=== PATIENT | female | born 1990 | race Caucasian/White ===

== ENCOUNTER → 2024-02-21 07:10 | Outpatient (REF) | payer OTHER, SELFPAY | LOC: HWRAD 07:10 | PROVIDERS: ATTENDING PHYSICIAN Internal Medicine; FAMILY PHYSICIAN Student in an Organized Health Care Education/Training Program | DX: Q61.2 Polycystic kidney, adult type (principal) | CPT/HCPCS: 76700 ==

== ENCOUNTER 2024-12-04 15:35 | Emergency (ER) | payer OTHER, SELFPAY ==
[2024-12-04 15:49] VITALS: BP 147/107
--- NOTE | 2024-12-04 15:50 | ED.GENMED ---
ED Provider Triage
<See Lezama PA-C - Last Filed: 12/04/24 15:51>
-
Patient seen by provider in Triage?: Seen in Triage
34-year-old female presents with bilateral upper and lower extremity swelling with back discomfort. She states this started after strenuous exercise. She has polycystic kidney disease. She noted flulike symptoms 2 nights ago as well no chest pain
or shortness of breath
Vital signs are stable through triage. Will start with labs including CBC CMP CPK hCG and urinalysis. COVID and flu test ordered as well
Patient seen by healthcare provider at triage but warrants further work up.
History of Present Illness
<See Lezama PA-C - Last Filed: 12/04/24 15:51>
General
Chief Complaint: Swelling
Time Seen by Provider: 12/04/24 18:40
<Phil Díaz DO, Resident - Last Filed: 12/04/24 19:51>
General
Source: patient
History of Present Illness
History of Present Illness:
34-year-old female past medical history of polycystic kidney disease and hypothyroidism presents for bilateral foot and hand swelling of a few days in duration. Patient reports some back pain and neck pain which started after exercising. Neck pain
is reproducible with motion and palpation. Back pain is along the right side mid thoracic, not reproducible with pain or movement. Patient is also endorsing some painful gait, described as 'swelling pain' says that she has difficulty ambulating.
In the emergency department patient is able to ambulate with shoes on and off.
Past History
<See Lezama PA-C - Last Filed: 12/04/24 15:51>
Past History
ED Past Medical History: Other (polycystic kidney)
ED Past Surgical History: None
Social History
Tobacco: Smoker
Alcohol: None
Drug: None
Personal:
Living: with family
Employment: Employed
Family History
Family History: Negative Diabetes or Hypertension
Review of Systems
<Phil Díaz DO, Resident - Last Filed: 12/04/24 19:51>
Review of Systems
Constitutional: Reports no symptoms
Respiratory: Reports no symptoms
Cardiac: Reports no symptoms
ABD/GI: Reports no symptoms; Denies nausea or vomiting
: Reports flank pain and other (No urinary symptoms)
Musculoskeletal: Reports neck pain and back pain
Phy Exam
<Phil Díaz DO, Resident - Last Filed: 12/04/24 19:51>
General Physical Exam
General Presentation: well appearing and no apparent distress
General Skin: warm and dry
Cardiovascular Exam
Cardiovascular Exam: regular rate/rhythm, no edema and no murmur
Pulmonary Exam
Pulmonary Exam: lungs clear, no respiratory distress, no crackles and no wheezing
Gastrointestinal Exam
Gastrointestinal Exam: non tender, soft, non distended and other (Abdomen nontender on exam to both deep and light palpation, no rebound, no guarding.)
Musculoskeletal Exam
Musculoskeletal Exam: edema (Hands do not have any edema present. There is small amount of nonpitting edema present in bilateral lower extremities, slight sock sign. Grade would be trace or +1) and other (Patient has cervical neck pain,
reproduction with active and passive motion as well as palpation. Back pain present mid right thoracic, not reproducible with palpation or movement)
Course
<See Lezama PA-C - Last Filed: 12/04/24 15:51>
Orders/Labs/Results
Orders:
Orders
12/04/24 15:49
Test Result ONCE
12/04/24 16:00
CPK [Creatine Phosphokinase] Urgent
Complete Blood Count/With Diff Urgent
Comprehensive Metabolic Panel Urgent
HCG, Serum Qualitative Screen Urgent
NT-proBNP Urgent
12/04/24 19:29
Urinalysis Reflex To Culture Urgent
Date Specimen was Collected: 12/04/24
Time Specimen was Collected: 19:17
Abnormal Lab Results
12/04/24
16:00
RBC 3.62 L 10^6/uL
(4.20-5.40)
Hgb 11.4 L g/dL
(12.0-16.0)
Hct 33.1 L %
(37.0-47.0)
MCH 31.5 H pg
(27.0-31.0)
MPV 11.5 H fL
(7.4-10.4)
Absolute Lymphs (auto) 0.7 L 10^3/uL
(1.2-3.4)
Neutrophils % 85.5 H %
(42.2-75.2)
Lymphocytes % 10.4 L %
(20.5-51.1)
BUN 21 H mg/dl
(7-17)
Glucose 137 H mg/dl
(70-99)
Creatine Kinase 138 H U/L
(30-135)
12/04/24 16:00
12/04/24 16:00
Vital Signs
Initial and Last Documented VS:
Initial Vital Signs
Temp Pulse Resp BP Pulse Ox
36.7 C 84 16 147/107 100
12/04/24 15:49 12/04/24 15:49 12/04/24 15:49 12/04/24 15:49 12/04/24 15:49
Last Documented Vital Signs
Temp Pulse Resp BP Pulse Ox
36.7 C 78 18 135/92 98
12/04/24 15:49 12/04/24 17:42 12/04/24 17:42 12/04/24 17:42 12/04/24 17:42
<Phil Díaz DO, Resident - Last Filed: 12/04/24 19:51>
Orders/Labs/Results
Orders:
Orders
12/04/24 15:49
Test Result ONCE
12/04/24 16:00
CPK [Creatine Phosphokinase] Urgent
Complete Blood Count/With Diff Urgent
Comprehensive Metabolic Panel Urgent
HCG, Serum Qualitative Screen Urgent
NT-proBNP Urgent
12/04/24 19:29
Urinalysis Reflex To Culture Urgent
Date Specimen was Collected: 12/04/24
Time Specimen was Collected: 19:17
Abnormal Lab Results
12/04/24
16:00
RBC 3.62 L 10^6/uL
(4.20-5.40)
Hgb 11.4 L g/dL
(12.0-16.0)
Hct 33.1 L %
(37.0-47.0)
MCH 31.5 H pg
(27.0-31.0)
MPV 11.5 H fL
(7.4-10.4)
Absolute Lymphs (auto) 0.7 L 10^3/uL
(1.2-3.4)
Neutrophils % 85.5 H %
(42.2-75.2)
Lymphocytes % 10.4 L %
(20.5-51.1)
BUN 21 H mg/dl
(7-17)
Glucose 137 H mg/dl
(70-99)
Creatine Kinase 138 H U/L
(30-135)
12/04/24 16:00
12/04/24 16:00
Vital Signs
Initial and Last Documented VS:
Initial Vital Signs
Temp Pulse Resp BP Pulse Ox
36.7 C 84 16 147/107 100
12/04/24 15:49 12/04/24 15:49 12/04/24 15:49 12/04/24 15:49 12/04/24 15:49
Last Documented Vital Signs
Temp Pulse Resp BP Pulse Ox
36.7 C 78 18 135/92 98
12/04/24 15:49 12/04/24 17:42 12/04/24 17:42 12/04/24 17:42 12/04/24 17:42
<Mega Snider MD - Last Filed: 12/04/24 23:29>
Orders/Labs/Results
Orders:
Orders
12/04/24 15:49
Test Result ONCE
12/04/24 16:00
CPK [Creatine Phosphokinase] Urgent
Complete Blood Count/With Diff Urgent
Comprehensive Metabolic Panel Urgent
HCG, Serum Qualitative Screen Urgent
NT-proBNP Urgent
12/04/24 19:29
Urinalysis Reflex To Culture Urgent
Date Specimen was Collected: 12/04/24
Time Specimen was Collected: 19:17
Abnormal Lab Results
12/04/24
16:00
RBC 3.62 L 10^6/uL
(4.20-5.40)
Hgb 11.4 L g/dL
(12.0-16.0)
Hct 33.1 L %
(37.0-47.0)
MCH 31.5 H pg
(27.0-31.0)
MPV 11.5 H fL
(7.4-10.4)
Absolute Lymphs (auto) 0.7 L 10^3/uL
(1.2-3.4)
Neutrophils % 85.5 H %
(42.2-75.2)
Lymphocytes % 10.4 L %
(20.5-51.1)
BUN 21 H mg/dl
(7-17)
Glucose 137 H mg/dl
(70-99)
Creatine Kinase 138 H U/L
(30-135)
12/04/24 16:00
12/04/24 16:00
Vital Signs
Initial and Last Documented VS:
Initial Vital Signs
Temp Pulse Resp BP Pulse Ox
36.7 C 84 16 147/107 100
12/04/24 15:49 12/04/24 15:49 12/04/24 15:49 12/04/24 15:49 12/04/24 15:49
Last Documented Vital Signs
Temp Pulse Resp BP Pulse Ox
36.7 C 78 18 135/92 98
12/04/24 15:49 12/04/24 17:42 12/04/24 17:42 12/04/24 17:42 12/04/24 17:42
<Phil Díaz DO, Resident - Last Filed: 12/04/24 19:51>
MDM/Problems Addressed
Differential Diagnosis Includes:
Musculoskeletal strain, cyst rupture, idiopathic edema, nephrotic syndrome
MDM/Problems Addressed:
34 female past medical history of polycystic kidney disease and hypothyroidism presents for couple days duration of bilateral hand and foot swelling
Patient is endorsing that the foot swelling is causing her pain with gait, says it is difficult to walk without shoes
In emergency department patient has normal gait with both shoes on and off. Able to bear weight and ambulate multiple steps without assistance
Patient is also endorsing some cervical pain and back pain, cervical pain started after she was working out. It is reproducible with active motion and palpation
Back pain is midthoracic, endorsing it is at her flank. Back pain is not reproducible with motion or with palpation
Cervical pain is likely musculoskeletal in nature. Back pain could be related to polycystic kidney disease or musculoskeletal strain
Patient denies any shortness of breath, no chest pain, no abdominal pain
In emergency department patient is slightly hypertensive, all other vitals within normal limits
Laboratory demonstrates normal white blood cell count, hemoglobin 11.4, chemistry within normal limits, creatinine at baseline. Serum protein normal, serum albumin normal, beta-hCG negative.
proBNP 530, considered positive for age range 22-49, patient is not short of breath, denies orthopnea. Patient is 34, no history of heart failure. Do not believe patient is in heart failure exacerbation
On physical exam heart and lungs are clear, abdomen benign. Abdomen nontender to palpation, no rebound, no guarding. Patient resting comfortably
There is some nonpitting edema present in bilateral lower extremities, legs do feel slightly tight. Graded would be trace to +1. There is no swelling present in the bilateral upper extremities during ED visit
Will check UA, COVID and influenza swabs were ordered by triage PA
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
Urinalysis within normal limits, no infection, nitrate negative, leukocyte Estrace negative, urine albumin negative
No concern for UTI or nephrotic syndrome on UA
Unsure etiology of edema and pain with ambulation. Patient is stable for discharge. Encourage follow-up with primary care physician
<Phil Díaz DO, Resident - Last Filed: 12/04/24 19:51>
*Critical Care Note
Total Time (30-74mins, 75-104mins- exclusive of procedures): Not Applicable
ED Attending Note
<See Lezama PA-C - Last Filed: 12/04/24 15:51>
-
Portions of this chart may have been created with voice recognition software.� Occasional wrong word or��sound alike� substitutions may have occurred due to the inherent limitations of voice recognition software.
<Mega Snider MD - Last Filed: 12/04/24 23:29>
ED Attending Note
Patient seen and examined by attending physician: Yes
I performed a history and physical exam of patient and discussed management with resident, I reviewed resident's note and agree with documented findings and plan of care.: Yes
ED Attending Note:
I have seen and evaluated the patient with a [id number] encounter. I have spoken to the resident and involved in the medical history, the physical exam, medical decision making.
Evaluation and management service: agree unless noted differently below.
Results interpretation: agree unless noted differently below.
Focused HPI: 34-year-old female with a past medical history of polycystic kidney disease presents to the ER for evaluation of swelling in the ankles and hands. Patient says that she is generally active but has not been to the gym for quite some
time. A few days ago she says she went to the gym and she thinks that she 'overdid it.' She says she did strenuous cardio and weight training. She says that the next day she noticed that she was having some swelling around the ankles and in the
hands as well as some mild low back pain. Also reports some soreness in the hands and ankles. Symptoms have been persistent since then and are not improving despite the fact that she has not returned to the gym and so she came to the ER to be
assessed that she was concerned that it could be a sign of an issue with her kidneys. She denies any other complaints including chest pain, shortness of breath.
Physical exam: Awake alert no distress. Vital signs normal. She has very minor/trace nonpitting edema/swelling localized to the area around the ankles, symmetric bilaterally. No appreciable objective edema in the hands.
Medical Decision Makin-year-old female presents for evaluation of trace swelling in the ankles and hands after vigorous exercise. She was concerned that it could be a sign of a kidney issue. Labs are sent off and were unremarkable she has
notable normal creatinine. Her urinalysis is negative for blood and negative for proteinuria and she has normal albumin level in the serum. I suspect that swelling is more related to recent vigorous exercise/localized inflammatory response rather
than true edema. Nothing on exam or by history to suggest emergent pathology at this point and I think she is stable for discharge advised to elevate, ice, rest and follow-up with her PCP. She feels comfortable with this plan.
Discharge Plan
Departure
Patient Disposition: Home (Routine Discharge)
Date of Disposition: 12/04/24
Time of Disposition: 20:26
Patient with high blood pressure during this ER visit?: Yes
Discharge Problem:
Bilateral lower extremity edema
Instructions: Dependent Edema (DC), Swelling, BLOOD PRESSURE
Prescriptions:
No Action
vit [id number] [ Vitamin] 1 EACH tablet
1 mg PO DAILY
Tirosint Tab
112 mcg PO DAILY
sennosides-docusate sodium 1 TABLET tablet
1 tab PO DAILYPRN PRN (Reason: constipation) Qty: 0 0RF
ibuprofen 600 MG tablet
600 mg PO Q4HPRN PRN (Reason: moderate pain/cramps) Qty: 0 0RF
acetaminophen-codeine 1 TABLET tablet
1 tab PO Q6HPRN PRN (Reason: pain) Qty: 12 0RF
Referrals:
Cher Martin PA-C [Family Provider] - Call in 1-3 days for appt
Activity Restrictions/Additional Instructions:
Please schedule a follow-up appointment with your primary care provider, call in 1 to 3 days for an appointment
Please return to the emergency department if you develop any numbness and tingling lower extremities, they become pale, cool and painful. If you develop any severe abdominal pain, blood in the urine or with any concerns
Interventions
Interventions:
*Risk Screen - Suicide Last Done: 12/04/24 15:50
*General Assessment Last Done: 12/04/24 20:00
*Neglect/Abuse Screening Last Done: 12/04/24 15:50
ED- Fall Risk Assessment Last Done: 12/04/24 17:42
*Nursing Disposition Last Done: 12/04/24 20:28
ED- Cardiac Assessment Last Done: 12/04/24 17:42
ED- Pulmonary Assessment Last Done: 12/04/24 17:42
ED-Skin Assessment Last Done: 12/04/24 17:42
Discharge Date and Time
Discharge Date/Time: 12/04/24 21:02
Print Language: GREENLAND[place]
[2024-12-04 16:10] LABS: % Basophils 0.4 % (0-2); % Immature Granulocytes 0.4 % (0-0.5); % Lymphocytes 10.4 % (20.5-51.1); % Monocytes 3.3 % (1.7-9.3); % Neutrophils 85.5 % (42.2-75.2); Absolute Lymphocytes 0.7 10^3/uL (1.2-3.4); Absolute Monocytes 0.2 10^3/uL (0.1-0.6); Absolute Neutrophils 5.7 10^3/uL (1.4-6.5); Hematocrit 33.1 % (37.0-47.0); Hemoglobin 11.4 g/dL (12.0-16.0); Mean Corp Hgb Conc. 34.4 g/dL (33.0-37.0); Mean Corpuscular Hgb 31.5 pg (27.0-31.0); Mean Corpuscular Volume 91.4 fL (81.0-99.0); Mean Platelet Volume 11.5 fL (7.4-10.4); Nucleated Red Blood Cells % 0 %; Platelet Count 237 10^3/uL (130-400); Red Blood Cell Count 3.62 10^6/uL (4.20-5.40); Red Cell Dist. Width 11.8 % (11.5-14.5); White Blood Cell Count 6.7 10^3/uL (4.8-10.8)
[2024-12-04 16:23] LABS: HCG, Serum Qualitative Screen Negative
[2024-12-04 16:27] LABS: ALT (SGPT) 29 U/L (0-35); AST (SGOT) 32 U/L (14-36); Albumin 4.1 g/dl (3.5-5.0); Alkaline Phosphatase 38 U/L (38-126); Blood Urea Nitrogen 21 mg/dl (7-17); Calcium 9.3 mg/dl (8.4-10.2); Carbon Dioxide 22 mmol/L (22-30); Chloride 103 mmol/L (98-107); Creatine Phosphokinase 138 U/L (30-135); Glucose 137 mg/dl (70-99); Potassium 4.6 mmol/L (3.5-5.1); Sodium 136 mmol/L (135-145); Total Bilirubin 0.3 mg/dl (0.2-1.3); Total Protein 7.2 g/dl (6.3-8.2); eGFR > 60.00
[2024-12-04 17:30] LABS: NT-proBNP 530 pg/ml
[2024-12-04 17:42] VITALS: BP 135/92
[2024-12-04 19:34] LABS: Urine Albumin Negative (Neg - Trace); Urine Bilirubin Negative (Negative); Urine Character Clear (Clear); Urine Color Yellow; Urine Glucose Negative (Negative); Urine Ketone Negative (Negative); Urine Leukocyte Negative (Negative); Urine Nitrite Negative (Negative); Urine Occult Blood Negative (Negative); Urine Urobilinogen Negative (Neg - 1+)
== END 2024-12-04 21:02 | disposition home or self-care (01) ==
LOC: EMR 15:35
PROVIDERS: Physician Assistant; EMERGENCY PHYSICIAN Emergency Medicine; FAMILY PHYSICIAN Physician Assistant
DX: R60.0 Localized edema (principal); Q61.3 Polycystic kidney, unspecified; E03.9 Hypothyroidism, unspecified; F17.200 Nicotine dependence, unspecified, uncomplicated
CPT/HCPCS: 99283; 80053; 81003; 82550; 83880; 84703; 85025